=== PATIENT | male | born 1940 | race Caucasian/White ===

== ENCOUNTER → 2016-09-21 | Outpatient (CLI) | payer OTHER ==
--- NOTE | 2016-09-21 13:10 | US ---
Bilateral Duplex/Doppler Carotid Sonography Clinical Indications: 76-year-old male a history of TIA, a value a for arterial occlusive disease. Technique: The cervical portions of the carotid and vertebral arteries were imaged and interrogated b y color and pulsed Doppler. Spectral analysis was performed. Comparison to the previous examination September 07, 2015. Findings: Right Carotid: The common carotid artery, bifurcation, and origins of the internal and external carot id arteries are well imaged. Mild plaque formation is seen at the level of the carotid bifurcation. Peak ICA systolic velocity; 69 cm/sec. The internal to common carotid artery ratio is calculated at 1.0. Peak ICA diastolic velocity; 18 cm/sec. There is no evidence of flow-limiting stenosis. Left Carotid: The common carotid artery, bifurcation, and origins of the internal and external carot id arteries are well imaged. Mild plaque formation is seen at the level of the carotid bifurcation. Peak ICA systolic velocity; 54 cm/sec. The internal to common carotid artery ratio is calculated at 0.7. Peak ICA diastolic velocity; 18 cm/sec. There is no evidence of flow-limiting stenosis. Vertebral Arteries: Antegrade flow is shown by pulsed Duplex/Doppler of each vertebral artery. There has been no significant change from the prior Doppler examination. Incidentally cardiac arrhyth mias are seen. Impression: Plaque formation is seen involving the carotid bifurcations bilaterally with no evidence of flow-limiting carotid stenosis. Measurement of carotid stenosis is based on velocity parameters that correlate the residual internal carotid diameter with [place] Symptomatic Carotid Endarterectomy Trial (NASCET) based stenosis levels.
== END ==
LOC: BMCIMAGING 11:27
PROVIDERS: ATTEND Internal Medicine Cardiovascular Disease
DX: I65.23 Occlusion and stenosis of bilateral carotid arteries (principal)

== ENCOUNTER → 2018-02-11 | Outpatient (CLI) | payer OTHER ==
[~2018-02-11] MED LIST: IOPAMIDOL (ISOVUE-300) 100 ML BTL ONE
== END ==
LOC: FIMAGING 09:13
PROVIDERS: ATTEND Family Medicine
DX: Z13.89 Encounter for screening for other disorder (principal)
CPT/HCPCS: 74170; Q9967; 82565-PO

== ENCOUNTER → 2018-02-21 | Outpatient (CLI) | payer OTHER | LOC: BHFA 11:00 | PROVIDERS: ATTEND Internal Medicine Interventional Cardiology | DX: Q21.1 Atrial septal defect (principal); E78.5 Hyperlipidemia, unspecified ==